=== PATIENT | male | born 1945 | race Caucasian/White ===

== ENCOUNTER → 2024-02-27 | Outpatient (CLI) | payer MEDICARE, OTHER ==
--- NOTE | 2024-03-02 08:55 | HMCSR ---
APPROVED REPORT EXAM: Two-dimensional and M-mode echocardiogram with Doppler and color Doppler. 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 Dyspnea 2D Dimensions RVDd4.6 cmLVEF(%)56.0 (>50%)LVED Vol(simp.)149.0 mL IVSd1.1 (0.7-1.1cm)FS(%)29 %LVES Vol(simp.)75.0 mL LVDd4.8 (3.8-5.6cm)Ao Root(2D)3.6 (2.0-3.7cm)LVEF(%, simp.)50 % PWd1.1 (0.7-1.1cm)LVOT diam2.4 (1.8-2.4cm)LA ESV INDEX (BP)32.18 mL/m2 LVDs3.4 (2.5-4.0cm) Aortic Valve AoV Vmax1.1 m/Toro Peak GR4.6 mmHgLVOT Vmax0.7 m/s AoV VTI0.3 mAo Mean GR2.6 mmHgLVOT VTI0.18 m EMA (VMAX)3.2 cm2AVA (VTI) 3.2 cm2 Mitral Valve MV E Vmax64.8 cm/sDECEL Umsk478 ms MV A Vmax75.4 cm/sP 1/2 T70 ms E/A ratio0.9MVA (PHT)3.1 cm2 TDI E/E' Dipmhg08.2E/E' Lateral7.7 Pulmonary Valve PV Vmax0.9 m/sPV VTI0.19 m Tricuspid Valve TR Vmax2.3 m/sRAP (EST) 8 atXuSRTD04.9 mmHg TR Peak GR21.9 mmHg Left Ventricle Left ventricular cavity size is normal. There is normal left ventricular wall thickness. LVEF is 50-5 5%. No left ventricle thrombus noted on this study. Indeterminate diastolic dysfunction. Right Ventricle The right ventricle is normal size. The right ventricular systolic function is normal. Atria The left atrium size is normal. The right atrium size is normal. Aortic Valve Aortic valve is trileaflet. Aortic valve leaflets are sclerotic but open well. No aortic regurgitatio n is present. There is no aortic valvular stenosis. Mitral Valve Mitral valve leaflets are mildly sclerotic but open well. Mitral regurgitation is trace. There is no mitral valve stenosis. Tricuspid Valve The tricuspid valve leaflets appear normal. There is trace to mild tricuspid regurgitation. Right elaine tricular systolic pressure is estimated at 30 mmHg. Pulmonic Valve The pulmonic valve leaflets are thin and pliable; valve motion is normal. There is trace pulmonic dalila vular regurgitation. Great Vessels The aortic root is normal in size. IVC is not well visualized. Pericardium No pericardial effusion. Conclusion Left ventricular cavity size is normal. There is normal left ventricular wall thickness. LVEF is 50-55%. The left atrium size is normal. Aortic valve is trileaflet. Aortic valve leaflets are sclerotic but open well. No aortic regurgitation is present. Mitral valve leaflets are mildly sclerotic but open well. Mitral regurgitation is trace. There is trace to mild tricuspid regurgitation. Right ventricular systolic pressure is estimated at 30 mmHg. There is trace pulmonic valvular regurgitation. The aortic root is normal in size. IVC is not well visualized. No pericardial effusion.
== END | disposition home or self-care (01) ==
LOC: SHCH 09:06
PROVIDERS: ATTEND Internal Medicine Cardiovascular Disease
DX: I07.1 Rheumatic tricuspid insufficiency (principal); I25.10 Atherosclerotic heart disease of native coronary artery without angina pectoris; R06.00 Dyspnea, unspecified
CPT/HCPCS: 93306

== ENCOUNTER → 2024-04-14 | Outpatient (CLI) | payer MEDICARE, OTHER ==
[2024-04-14] MEDS: REGADENOSON 0.4 MG/5 ML PF SYG IVP ONE (11:15)
--- NOTE | 2024-04-18 13:06 | HMCSR ---
APPROVED REPORT Height: 6 ft 0in Weight: 239 lbs TEST INDICATIONS R94.39 ABN RESLTS OF OTHER CARDIO FUNCTION TEST The imaging protocol used to acquire images was Rest Tc-99m/stress Tc-99m 1 day Consent: The procedure was explained and understood by the patient. Informerd consent was witnessed [place] ALCOCER RN First, low dose rest was performed then high dose stress. RESTING DATA: The resting ekg shows: NSR Rest SPECT myocardial perfusion imaging was performed in supine position 85 minutes following the int ravenous injection of 11.6 mCi of Tc-99 Sestamibi. Time of rest injection: 08:43: Date: 04/14/2024 Time of rest imagin:08: Date: 04/14/2024 PHARMACOLOGIC STRESS: Pharmacologic stress test was performed by injecting regadenoson 0.4 mg IV push followed by the intra venous injection of 31.5 mCi of Tc-99 Sestamibi. Time of stress injection: 10:38: Date: 04/14/2024 Time of stress imagin:49: Date: 04/14/2024 Heart Rate at time of stress injection: 58 bpm. Gated Stress SPECT was performed 71 minutes after stress injection. The images were gated to evaluate regional wall motion and calculate left ventricular ejection fracti on. STRESS DETAILS Reason for Termination: Infusion complete Stress Symptoms: Dyspnea Max HR Achieved: 81 bpm % of APMHR Achieved: 57 Max Blood Pressure: 131/80 mmHg Stress ECG: NSR LEFT VENTRICLE Size: The left ventricular size is normal. Systolic Function:The left ventricular systolic function is normal. Wall Motion: No regional wall motion abnormalities noted. The left ventricular ejection fraction was calculated to be 64%.TID = . LV PERFUSION Partially reversible infero-lateral defect. Fixed apical defect. Conclusion The left ventricular size is normal. The left ventricular systolic function is normal. No regional wall motion abnormalities noted. Partially reversible infero-lateral defect. Fixed apical defect. The left ventricular ejection fraction was calculated to be 64%.
== END | disposition home or self-care (01) ==
LOC: SHCH 08:26
PROVIDERS: ATTEND Internal Medicine Cardiovascular Disease
DX: R94.39 Abnormal result of other cardiovascular function study (principal); R06.00 Dyspnea, unspecified; I25.10 Atherosclerotic heart disease of native coronary artery without angina pectoris
CPT/HCPCS: 78452; 93017; J2785; A9500 ×2